=== PATIENT | female | born 1950 | race Caucasian/White ===

== ENCOUNTER 2016-06-02 18:34 | Inpatient (IN) | payer OTHER ==
[~2016-06-02] VITALS: Ht 160 cm; Wt 76.2 kg
[2016-06-02] MEDS ORDERED: ASPIRIN 81 MG TAB.CHEW PO ONE (18:45)
[2016-06-02] MEDS ORDERED: METF10002 PO (18:51)
[2016-06-02] MEDS ORDERED: LEVO50TA40 PO (18:51)
[2016-06-02] MEDS ORDERED: potassium PO (18:51)
[2016-06-02] MEDS ORDERED: AMLO10TA4 PO (18:51)
--- NOTE | 2016-06-02 18:52 | NUR ---
PT IS IN ROOM #1A. DR ELIZALDE EVALUATED THE PT. PT DOES NOT REMEMBER ALL NAMES OF HER HOME MEDICATION. ER NOTIFIED.
[2016-06-02] MEDS: IV NORMAL SALINE 500 ML BAG IV ONE ×2 (19:00→23:27)
[2016-06-02 19:07] LABS: BASOPHILS % (AUTO) 0.6 % (0.0-2.0); EOSINOPHILS # (AUTO) 0.1 K/uL (0.0-0.7); EOSINOPHILS % (AUTO) 0.8 % (0.0-7.0); HEMATOCRIT 41.7 % (37.0-47.0); HEMOGLOBIN 13.6 g/dL (12.0-16.0); LYMPHOCYTES % (AUTO) 14.5 % (20.5-51.5); MEAN CORPUSCULAR HEMOGLOBIN 27.8 uug (27.0-31.0); MEAN CORPUSCULAR HGB CONC 33 g/dL (32.0-37.0); MEAN CORPUSCULAR VOLUME 85.6 fL (81.0-99.0); MONOCYTES # (AUTO) 0.5 K/uL (0.1-1.30); MONOCYTES % (AUTO) 7.4 % (0.0-11.0); NEUTROPHILS # (AUTO) 5.6 K/uL (1.8-8.9); NEUTROPHILS % (AUTO) 76.7 % (38.5-71.5); PLATELET COUNT (AUTO) 69 K/uL (150-450); RED BLOOD CELL COUNT(AUTO) 4.87 MIL/uL (4.20-5.40); RED CELL DISTRIBUTION WIDTH 14.8 % (11.5-14.5); WHITE BLOOD COUNT (AUTO) 7.2 K/uL (4.0-11.2)
[2016-06-02 19:08] LABS: CREATININE 0.6 mg/dL (0.6-1.3); POTASSIUM 3.9 mmol/L (3.5-5.1)
[2016-06-02] MEDS ORDERED: ASPIRIN 81 MG TAB.CHEW ONE (19:09)
[2016-06-02] MEDS ORDERED: IV NORMAL SALINE 250 ML IV ONE (19:47)
[2016-06-02] MEDS ORDERED: IOHEXOL 350 100 ML INFUS..BTL ONE (19:47)
[2016-06-02] MEDS ORDERED: NORMAL SALINE FLUSH 10 ML DISP.SYRIN ONE (19:47)
[2016-06-02 19:52] LABS: BAND % (MANUAL) 5 % (0-10); EOSINOPHILS % (MANUAL) 1 % (0-8); LYMPHOCYTES % (MANUAL) 15 % (20-40); MONOCYTES % (MANUAL) 5 % (2-10); NEUTROPHILS % (MANUAL) 74 % (42-75); PLATELET ESTIMATE DECREASED
[2016-06-02 20:18] LABS: THYROID STIMULATING HORMONE 0.031 mIU/mL (0.358-3.740)
--- NOTE | 2016-06-02 21:30 | NUR ---
Pt. admitted to telemetry , under care of Dr. Kang, [place] List completed, pt is alert, oriented x 4, no resp distress noted or reported upon transfer assessment. Pt transferred via gurney...
[2016-06-02 22:30] VITALS: BP 122/72
[2016-06-02] MEDS ORDERED: NITROGLYCERIN 0.3 MG/TAB BOTTLE SL PRN (23:00)
[2016-06-02] MEDS ORDERED: ACETAMINOPHEN 325 MG TABLET PO PRN (23:00)
[2016-06-02] MEDS ORDERED: MORPHINE SULFATE 2 MG/1 ML DISP.SYRIN IV PRN (23:00)
[2016-06-02] MEDS ORDERED: MAGNESIUM HYDROXIDE 30 ML LIQUID UDC PO PRN (23:00)
[2016-06-02] MEDS ORDERED: ONDANSETRON 4 MG/2 ML VIAL IV PRN (23:00)
--- NOTE | 2016-06-02 23:00 | NUR ---
Received patient from ER in a stable condition for complaints of chest pain. Patient is cooperative, alert and oriented. No s/s of acute distress. Kept in a safe and comfortable position. Admission procedure completed. Call light kept within reach. Will continue to monitor.
[2016-06-03 04:08] VITALS: BP 93/51
[2016-06-03 06:37] LABS: BASOPHILS % (AUTO) 0.1 % (0.0-2.0); EOSINOPHILS % (AUTO) 0.8 % (0.0-7.0); HEMATOCRIT 38.2 % (37.0-47.0); HEMOGLOBIN 13.1 g/dL (12.0-16.0); LYMPHOCYTES # (AUTO) 1.6 K/uL (0.8-4.8); LYMPHOCYTES % (AUTO) 31.3 % (20.5-51.5); MEAN CORPUSCULAR HGB CONC 34 g/dL (32.0-37.0); MEAN CORPUSCULAR VOLUME 84.4 fL (81.0-99.0); MONOCYTES # (AUTO) 0.6 K/uL (0.1-1.30); MONOCYTES % (AUTO) 11.4 % (0.0-11.0); NEUTROPHILS # (AUTO) 2.8 K/uL (1.8-8.9); NEUTROPHILS % (AUTO) 56.4 % (38.5-71.5); RED BLOOD CELL COUNT(AUTO) 4.52 MIL/uL (4.20-5.40); RED CELL DISTRIBUTION WIDTH 14.8 % (11.5-14.5)
[2016-06-03] MEDS ORDERED: PANTOPRAZOLE SODIUM 40 MG TABLET.DR PO SCH (07:00)
[2016-06-03 07:32] LABS: ALANINE AMINOTRANSFERASE 38 U/L (14-59); ALBUMIN 3.2 g/dL (3.4-5.0); ALKALINE PHOSPHATASE 77 U/L (50-136); ASPARTATE AMINOTRANSFERASE 48 U/L (15-37); BILIRUBIN,TOTAL 0.9 mg/dL (0.2-1.0); CALCIUM 8.9 mg/dL (8.5-10.1); CARBON DIOXIDE 30 mmol/L (21-32); CHLORIDE 107 mmol/L (98-107); CHOLESTEROL 128 mg/dL (<200); GFR > 130 mL/min (>60); GLUCOSE 73 mg/dL (74-106); HDL CHOLESTEROL 60 mg/dL (40-60); MAGNESIUM 1.5 mg/dL (1.8-2.4); POTASSIUM 3.6 mmol/L (3.5-5.1); SODIUM SERUM 145 mmol/L (136-145); TOTAL PROTEIN, SERUM 6.6 g/dL (6.4-8.2); TRIGLYCERIDES 26 MG/DL (30-150); UREA NITROGEN, BLOOD 4 mg/dL (7-18)
[2016-06-03 07:37] LABS: CREATININE 0.4 mg/dL (0.6-1.3)
--- NOTE | 2016-06-03 08:00 | NUR ---
AWAKE COOPERATE WELL NO CHEST PAIN OR SOB EAT WELL CALL HAMEED IN REACH
[2016-06-03 08:38] LABS: THYROID STIMULATING HORMONE 0.018 mIU/mL (0.358-3.740)
[2016-06-03 08:48] LABS: IRON, SERUM 60 ug/dL (50-175)
[2016-06-03] MEDS ORDERED: Medication Not On Formulary EA (Metformin Hcl 1,000 MG) PO SCH (09:00)
[2016-06-03] MEDS ORDERED: LEVOTHYROXINE SODIUM 50 MCG TABLET PO SCH (09:00)
[2016-06-03] MEDS ORDERED: AMLODIPINE 10 MG TABLET PO SCH (09:00)
[2016-06-03] MEDS ORDERED: ASPIRIN EC 81 MG TABLET.DR PO SCH (09:00)
[2016-06-03 10:00] LABS: PLATELET COUNT (AUTO) 67 K/uL (150-450)
--- NOTE | 2016-06-03 10:00 | NUR ---
ECCHO CARDIOGRAM AT BED SIDE SHERINE PROCEDURE WELL OOB UP TO BRP SELF WELL
[2016-06-03 10:03] LABS: EOSINOPHILS % (MANUAL) 1 % (0-8); LYMPHOCYTES % (MANUAL) 29 % (20-40); MONOCYTES % (MANUAL) 11 % (2-10); NEUTROPHILS % (MANUAL) 59 % (42-75)
[2016-06-03] MEDS: MAGNESIUM SULFATE/D5W 100 ML IV SCH ×2 (10:07→10:56)
--- NOTE | 2016-06-03 10:30 | NUR ---
DR AVILA,O SEE PATIENT AND LAB RESULT AND MAG IVPB GIVEN ORDER NO SOB RESTING
[2016-06-03 11:21] VITALS: BP 98/57
[2016-06-03 15:18] VITALS: BP 99/59
--- NOTE | 2016-06-03 17:00 | NUR ---
HEMODYNAMIC STATUS STABLE SAFETY MEASURE PROVIDED CALL HAMEED IN REACH
[2016-06-03] MEDS ORDERED: METF500T4 PO (17:15)
--- NOTE | 2016-06-03 17:30 | NUR ---
DR AVILA SEEN PATIENT THIS AFTERNOON AND ORDER OK TO D/C HOME TODAY D/C INSTRUCTION REGARDING F/U WITH OWN PMD CALL FOR APPIONTMENT PRECRIPTION AND EDUCATION PK GAVE ,VERBALIZES UNDERSTAND REFUSED PHAMACY AND VACCINE FOR PNA PRIOR D/C HOME HL WAS DISCONTINUED NO PAIN OR SOB CONDITION STABLE STATE MORE STRONGER
--- NOTE | 2016-06-03 19:15 | NUR ---
d/c home with her belonging condition stable no chest pain or SOB
[2016-06-04] MEDS ORDERED: AMLODIPINE 5 MG TABLET PO SCH (09:00)
[2016-06-04] MEDS ORDERED: AMLODIPINE 10 MG TABLET PO SCH (09:00)
[2016-06-05] MEDS ORDERED: METFORMIN HCL 500 MG TABLET PO SCH (08:00)
== END 2016-06-03 19:15 | disposition home or self-care (01) | DRG 243 ==
LOC: ER 18:42 → TELE 22:00 → MED 06-03 15:53
PROVIDERS: ADMIT Internal Medicine; ATTEND Internal Medicine
DX: K21.9 Gastro-esophageal reflux disease without esophagitis (principal); I67.1 Cerebral aneurysm, nonruptured; D69.59 Other secondary thrombocytopenia; K74.60 Unspecified cirrhosis of liver; E83.42 Hypomagnesemia; E83.39 Other disorders of phosphorus metabolism; I10 Essential (primary) hypertension; D64.9 Anemia, unspecified; E11.9 Type 2 diabetes mellitus without complications; Z79.84 Long term (current) use of oral hypoglycemic drugs; K76.0 Fatty (change of) liver, not elsewhere classified; L40.50 Arthropathic psoriasis, unspecified; M79.7 Fibromyalgia; Z88.0 Allergy status to penicillin; L40.9 Psoriasis, unspecified; I34.0 Nonrheumatic mitral (valve) insufficiency; I36.1 Nonrheumatic tricuspid (valve) insufficiency; I51.7 Cardiomegaly; E05.90 Thyrotoxicosis, unspecified without thyrotoxic crisis or storm; J98.11 Atelectasis
CPT/HCPCS: 36415; 70030-TC; 70496; 71010; 83550; 83735; 84100; 84443; 85025; 85730; 93005; 93307; A4663; J3475; J3490; J7040; J7050; Q9967